=== PATIENT | female | born 1990 | race Caucasian/White ===

== ENCOUNTER → 2016-08-14 | Outpatient (CLI) | payer MEDICAID ==
[~2016-08-14] MED LIST: FERR325T PO; IBUP-232 PO; MACR100C2 PO; MAKE250I IM; OXYC1TAB63 PO; PERI8.6T PO; PREN1CAP30 PO
== END ==
LOC: HPND 13:12
PROVIDERS: ATTEND Obstetrics & Gynecology Obstetrics
DX: O99.212 Obesity complicating pregnancy, second trimester (principal); O09.212 Supervision of pregnancy with history of pre-term labor, second trimester; O09.292 Supervision of pregnancy with other poor reproductive or obstetric history, second trimester; Z68.41 Body mass index [BMI] 40.0-44.9, adult; Z3A.27 27 weeks gestation of pregnancy
CPT/HCPCS: 76816; 76817

== ENCOUNTER 2016-08-30 20:34 | Emergency (ER) | payer MEDICAID ==
[~2016-08-30 20:34] MED LIST changes: -FERR325T PO; -IBUP-232 PO; -MACR100C2 PO; -OXYC1TAB63 PO; -PERI8.6T PO
[2016-08-30 21:31] LABS: BACTERIA, URINE OCC /hpf; BLOOD, URINE NEG (NEG); COMMENT (UR) CULT NOT INDICATED; CULTURE IF INDICATED CULT NOT INDICATED; GLUCOSE,URINE NEG (NEG); KETONE, URINE NEG (NEG); MUCUS URINE FEW /lpf (OCC); NITRITE,URINE NEG (NEG); PH, URINE 6.5 (5.0-8.5); SQUAMOUS EPITHELIAL CELL URINE 2 /hpf (0-5); URINE COLOR YELLOW (YELLW/STRAW)
--- NOTE | 2016-08-30 22:57 | PD ---
HPI Chief Complaint Abdominal pain Date Seen: Aug 30, 2016 Travel History International Travel<30 Days: No Contact w/Intl Traveler<30Days: No Known Affected Area: No History of Present Illness HPI This patient is 25-year-old female 29 weeks gestation with history of complains of abdominal pains for several days, and no bleeding or leakage of fluid, baby is active heart rate tracing is reactive and no regular contractions Para: 3 : 4 Last Menstrual Period: Aug 30, 2016 History Obstetric History Obstetric History Her first was 26 week twins and the one baby did not survive that had a 32 week delivery and a term delivery Past Surgical History Narrative Surgical 3 C-sections Social History Alcohol Use: No Tobacco Use: No Substance Abuse: No Allergies-Medications (Allergen,Severity, Reaction): Coded Allergies: Benadryl (Unverified Allergy, Severe, ANAPHYLAXIS, 08/21/16) Home Meds Active Scripts Hydroxyprogesterone Caproate Inj ([place] Inj)250 Mg/Ml Cet108 Mg IM ONCE #4 VIAL Ref 4 Prov:Alise Hugo CNM [employer]ONING ENGINEER 08/14/16 Reported Medications Without A W/Fe Fum-Fe (Provida Dha 16-16-1.25-110 mg)1 Cap Cap Po #60 06/19/16 Review of Systems General / Constitutional: No: Fever, Weight Gain, Chills, Other Eyes: No: Diploplia, Blurred Vision, Visual changes, Pain, Photophobia HENT: No: Headaches, Vertigo, Lightheadedness Cardiovascular: No: Irregular Rhythm, Chest Pain or Discomfort, Palpitations, Tachycardia, Syncope, Varicosities, Edema, Cyanosis Respiratory: No: Cough, Short of Breath, Other Gastrointestinal: No: Nausea, Vomiting, Diarrhea Genitourinary: No: Decreased Urinary Output, Oliguria Musculoskeletal: No: Limited ROM, Weakness, Cramping, Edema, Pain Skin: No Rash, No Itching, No Dryness, No Lumps, No Change in Pigmentation, No Change in Nails, No Alopecia, No Lesions Neurologic: No: Weakness, Dizziness, Syncope, Focal Abnormalities, Coordination Problem, Headache, Slurred Speech, Seizures Psychiatric: No: Depression, Suicidal Ideations, Homicidal Ideation Endocrine: No: Heat Intolerance, Cold Intolerance, Polydipsia, Polyuria, Other Physical Exam Narrative GENERAL: Well-nourished, well-developed patient. SKIN: Warm and dry. HEAD: Normocephalic and atraumatic. EYES: No scleral icterus. No injection or drainage. ENT: No nasal drainage noted. Mucous membranes pink. Airway patent. NECK: Supple, trachea midline. No JVD. CARDIOVASCULAR: Regular rate and rhythm without murmurs, gallops, or rubs. RESPIRATORY: Breath sounds equal bilaterally. No accessory muscle use. BREASTS: Bilateral exam showed no masses , no retractions, no nipple discharge. ABDOMEN/GI: Abdomen soft, non-tender, bowel sounds present, no rebound, no guarding Gravid to [29-] weeks size Fundal Height: [29 cm-] GENITOURINARY: External Genitalia: intact and normal in appearance BUS glands: [-] Cervix: [-] Dilatation: [-] Closed Effacement: [-] Thick Station: [-3] Presentation: [-] Membranes: [intact ] Uterine Contractions: [no reg-] FHT's: Category: [1-] Baseline: [-144] Reactive: [-yes] Variability: [mod-] Decels: [none-] EXTREMITIES: No cyanosis or edema. BACK: Nontender without obvious deformity. No CVA tenderness. NEUROLOGICAL: Awake and alert. Motor and sensory grossly within normal limits. Five out of 5 muscle strength in all muscle groups. Normal speech. Data Data Orders Vital Signs (Adult) .ON ADMISSION (08/30/16 21:17) ^ Labor Status (08/30/16 21:17) Urinalysis - C+S If Indicated (08/30/16 21:17) Fibronectin (08/30/16 21:17) Labs Laboratory Tests Test 08/30/16 08/30/16 21:00 21:15 Urine Color YELLOW Urine Turbidity CLEAR Urine pH 6.5 Urine Specific [place] 1.019 Urine Protein TRACE Urine Glucose (UA) NEG Urine Ketones NEG Urine Occult Blood NEG Urine Nitrite NEG Urine Bilirubin NEG Urine Urobilinogen LESS THAN 2.0 Urine Leukocyte Esterase NEG Urine WBC 1 Urine Squamous Epithelial 2 Cells Urine Amorphous Sediment RARE Urine Bacteria OCC Urine Mucus FEW Microscopic Urinalysis Comment CULT NOT INDICATED Fibronectin NEGATIVE MDM Interpretation(s) This patient is 29 week intrauterine followed to [facility] who has abdominal pains. She is a history of the past she's been on [place] progesterone injections but has not had steroids. He complaining of abdominal pains but has no regular contractions membranes are intact with no vaginal bleeding. heart tones within normal limits reactive strip and no regular contractions noted, urinalysis is negative , fibronectin negative. Plan Plan to discharge home to bedrest Tylenol use liberally for pain increase her fluids by mouth and bedrest with heating pad or hot bath and we have work note for 48 hours. Diagnosis Diagnosis: Primary Impression: Abdominal pain during in third trimester Additional Impressions: Previous section History of delivery Disposition: 01 DISCHARGE HOME Condition: Stable Patient Instructions: General Instructions, Labor (ED), Abdominal Pain in (ED) Additional Instructions: RETURN FOR CONTRACTIONS, LOSS OF FLUID (WATER BREAKING), VAGINAL BLEEDING, OR DECREASED MOVEMENT DRINK 8-10 LARGE GLASSES OF WATER EVERY DAY KEEP SCHEDULED APPOINTMENT WITH YOUR PROVIDER Departure Forms: Work Release Jakob Doran II, MD Aug 30, 2016 22:56
[2016-09-25] MEDS ORDERED: MACR100C2 PO (15:44)
== END 2016-08-30 23:14 | disposition home or self-care (01) ==
LOC: HOBED 20:34
DX: O26.893 Other specified pregnancy related conditions, third trimester (principal); R10.9 Unspecified abdominal pain; Z3A.36 36 weeks gestation of pregnancy
CPT/HCPCS: 81001; 82731; 99284

== ENCOUNTER → 2016-09-12 | Outpatient (CLI) | payer MEDICAID ==
[~2016-09-12] MED LIST changes: +FERR325T PO; +IBUP-232 PO; +MACR100C2 PO; +OXYC1TAB63 PO; +PERI8.6T PO
== END ==
LOC: HPND 15:01
PROVIDERS: ATTEND Obstetrics & Gynecology
DX: O99.212 Obesity complicating pregnancy, second trimester (principal); O09.212 Supervision of pregnancy with history of pre-term labor, second trimester; E66.01 Morbid (severe) obesity due to excess calories; O09.292 Supervision of pregnancy with other poor reproductive or obstetric history, second trimester; Z68.41 Body mass index [BMI] 40.0-44.9, adult; Z3A.32 32 weeks gestation of pregnancy
CPT/HCPCS: 76816

== ENCOUNTER 2016-10-13 08:29 | Inpatient (IN) | payer MEDICAID ==
[2016-10-13] VITALS (9 sets, daily range): BP systolic 95–123; BP diastolic 45–65; PULSE 71–83; RESP 16–18; TEMP 97.8–98.5; O2SAT 99
[~2016-10-13] VITALS: Ht 154.9 cm; Wt 104.8 kg
[~2016-10-13 08:29] MED LIST changes: -FERR325T PO; -IBUP-232 PO; -MACR100C2 PO; -MAKE250I IM; -OXYC1TAB63 PO; -PERI8.6T PO
[2016-10-13] MEDS ORDERED: LACTATED RINGER'S 1000 ML INJ 1,000 ML IV ONE (09:07)
--- NOTE | 2016-10-13 09:59 | PD ---
HPI Date Seen: Oct 13, 2016 Time Seen: 09:00 (Juan Carlos Chowdary MD R2) Date Seen: Oct 13, 2016 Time Seen: 09:00 (Darin Alex MD) Travel History International Travel<30 Days: No Contact w/Intl Traveler<30Days: No Known Affected Area: No (Juan Carlos Chowdary MD R2) International Travel<30 Days: No Contact w/Intl Traveler<30Days: No Known Affected Area: No (Darin Alex MD) History of Present Illness HPI Pt is a 25-year-old at 35/6 weeks gestation with KEVIN of 11/11/16 based on second trimester ultrasound presenting due to leakage of fluid. Pt reports that she noticed leakage of fluid earlier this morning around 6am, fluid has a green color. She has been experiencing lower abdominal contractions intermittently. She is unsure of the frequency. She endorses movement, denies vaginal bleeding. care is with Missy Eric. She had a c- section consult on 10/11/16. Pt has had 3 previous c-sections. Pt desires a tubal ligation. Consent is signed and on her chart. Pt was taking Mekena due to history of labor. (Juan Carlos Chowdary MD R2) History Past Medical History Narrative Medical Denies history of Asthma Medical History: Denies Significant Hx (Juan Carlos Chowdary MD R2) Medical History: Denies Significant Hx (Darin Alex MD) Obstetric History Obstetric History x3 2006: Emergency at 26 weeks, twin gestation. Second female after one month 2009: repeat at 32 weeks 2011: repeat at 39 weeks (Juan Carlos Chowdary MD R2) Past Surgical History Narrative Surgical Cholecystectomy in 2011 (Juan Carlos Chowdary MD R2) Family History Family History: Negative (Juan Carlos Chowdary MD R2) Family History: Negative (Darin Alex MD) Social History Alcohol Use: No Tobacco Use: No Substance Abuse: No (Juan Carlos Chowdary MD R2) Alcohol Use: No Tobacco Use: No Substance Abuse: No (Darin Alex MD) Allergies-Medications (Allergen,Severity, Reaction): Coded Allergies: Benadryl (Unverified Allergy, Severe, ANAPHYLAXIS, 09/25/16) Home Meds Reported Medications Without A W/Fe Fum-Fe (Provida Dha 16-16-1.25-110 mg)1 Cap Cap Po #60 06/19/16 Discontinued Scripts Nitrofurantoin Monohydrate Macrocrystals (Macrobid)100 Mg Stf940 Mg PO BID #10 CAP Ref 0 Prov:Faustino Limon MD 09/25/16 Review of Systems General / Constitutional: No: Fever, Chills Eyes: No: Blurred Vision HENT: No: Headaches Respiratory: No: Short of Breath Gastrointestinal: Abdominal Pain Genitourinary: No: Vaginal Bleeding Musculoskeletal: No: Edema (Juan Carlos Chowdary MD R2) Except as stated in HPI: all other systems reviewed are Neg (Darin Alex MD) Physical Exam Narrative GENERAL: Well-nourished, well-developed patient. SKIN: Warm and dry. HEAD: Normocephalic and atraumatic. EYES: No scleral icterus. No injection or drainage. ENT: No nasal drainage noted. Mucous membranes pink. Airway patent. NECK: Supple, trachea midline. No JVD. CARDIOVASCULAR: Regular rate and rhythm without murmurs, gallops, or rubs. RESPIRATORY: Breath sounds equal bilaterally. No accessory muscle use. BREASTS: Bilateral exam showed no masses , no retractions, no nipple discharge. ABDOMEN/GI: Abdomen soft, non-tender, bowel sounds present, no rebound, no guarding Gravid to 35 weeks size GENITOURINARY: External Genitalia: intact and normal in appearance Cervix: Posterior Dilatation: 0cm Effacement: 80% Station: -3 Presentation: Vertex Membranes: ruptured Uterine Contractions: Q4 minutes FHT's: Category: 1 Baseline: 150 Reactive: + Variability: Moderate Decels: Absent EXTREMITIES: No cyanosis or edema. BACK: Nontender without obvious deformity. No CVA tenderness. NEUROLOGICAL: Awake and alert. Motor and sensory grossly within normal limits. Five out of 5 muscle strength in all muscle groups. Normal speech. (Juan Carlos Chowdary MD R2) Narrative Adult white female in no distress Head and neck exam reveals no thyromegaly or adenopathy Lungs clear heart regular rate and rhythm without murmurs Abdomen is gravid, soft, nontender Pelvic exam reveals clear fluid leaking from the perineum, positive amnio sure, Extremities nontender. Trace edema (Darin Alex MD) Data Data Vital Signs Reviewed: Yes Orders Admit To Inpatient (10/13/16 ) Code Status (10/13/16 09:07) Vital Signs (Adult) .ON ADMISSION (10/13/16 09:07) Activity Oob Ad Melva (10/13/16 09:07) ^ Heart (10/13/16 09:07) Urinary Catheter Management LUPE.Q8H (10/13/16 09:07) ^ Preps (10/13/16 09:07) ^ Ultrasound For Locatio (10/13/16 09:07) Diet Npo (10/13/16 Breakfast) Lactated Ringer's 1000 Ml Inj (Lr 1000 M (10/13/16 09:07) Lactated Ringer's 1000 Ml Inj (Lr 1000 M (10/13/16 09:37) Citric Acid-Sodium Citrate Liq (Bicitra (10/13/16 10:45) Type And Screen (10/13/16 09:07) Complete Blood Count With Diff (10/13/16 09:07) Urinalysis - C+S If Indicated (10/13/16 09:07) Cefazolin Inj (Ancef Inj) (10/13/16 10:15) Inpatient Certification (10/13/16 ) Ob (2e) Additional Admit Info (10/13/16 09:27) (Juan Carlos Chowdary MD R2) MDM Medical Record Reviewed: Yes Interpretation(s) Pt is a 25-year-old with KEVIN of 11/11/16 based on second trimester ultrasound presenting due to leakage of fluid, amnisure positive. 1) IUP Category 1 tracing, reassuring Contractions q4 minutes Amnisure positive Pt to be admitted for repeat 2) Status post c section x3 Pt had consult on 10/13/[address] Alex (Juan Carlos Chowdary MD R2) Medical Record Reviewed: Yes Narrative Course / MDM 35+ week intrauterine with ruptured membranes, prior section desiring repeat and tubal ligation Plan: Patient be admitted for repeat section and tubal ligation ( Darin Alex MD) Diagnosis Diagnosis: Primary Impression: labor in third trimester Juan Carlos Chowdary MD R2 Oct 13, 2016 09:59 Darin Alex MD Oct 14, 2016 10:28 Darin Alex MD) Diagnosis Diagnosis: Primary Impression: labor in third trimester Juan Carlos Chowdary MD R2 Oct 13, 2016 09:59 Darin Alex MD Oct 14, 2016 10:28
--- NOTE | 2016-10-13 10:26 | HHI.HP ---
History & Physical H&P This patient is a 25-year-old 4 para 1 203 EDC is November 11, 2016 who presents for a consult for repeat section due to PROM at 35-36 wks care with [facility]. Patient also desires a tubal ligation and she has her tubal papers with her it was explained that she should bring them with her when she arrives Course is significant for previous 3 treated for urinary tract infection Laboratory data her blood type is A+ BV on Pap smear treated VDRL is nonreactive Hepatitis negative One-hour Glucola of 80 HIV negative Rubella immune Patient was on Mekena due to history of labor Past medical history she is allergic to Benadryl, UTI BV Surgery includes 3 Social history is negative Family history is negative No previous hospitalization OB history November 14, 2005 emergency section at 26 weeks for twin gestation Female 1 lb. 11 oz. Second infant female 1 lb. 13 oz. Second baby after 1 month August 23, 2009 at 32 weeks' repeat section female 6 lbs. 3 oz. Third February 01, 2012 at 39 weeks repeat female 6 lbs. 7 oz. Ultrasound data on May 28, 2016 at 16 weeks and 1 day patient had an ultrasound placing her EDC at November 11 she will be 39 completed weeks on November 04 after evaluation of the schedule patient is scheduled at 10:30 AM on October Was explained to the patient if she breaks her water goes into labor she is to come straight to labor and delivery for a repeat section that will be done by the on-call hospitalist, Assessment; 25-year-old who will be 39 weeks on November 04 scheduled for a repeat November 06, 2016 now with PROM at 35-36 wks + amnisure Previous 3 Plan; repeat Procedure indications and complications have been fully discussed with the patient she understands and desires to proceed she has a T on her abdomen midline incision as well as a Pfannenstiel we'll discuss route when she arrives with the on-call physician She also desires a tubal ligation she has her sign documents procedure indications and complications have been fully discussed with the patient failure rates have been discussed, risk of ectopic has been discussed, alternate forms of control have been discussed, regret factor discussed, she was to proceed with tubal she does not desire any more children her family status is complete Ruth Booker MD Oct 11, 2016 13:46 Jakob Doran II, MD Oct 13, 2016 10:20 Jakob Doran II, MD Oct 13, 2016 10:26
--- NOTE | 2016-10-13 10:33 | HHI.HP ---
History & Physical H&P Date Seen: Oct 13, 2016 Time Seen: 09:00 Travel History International Travel<30 Days: No Contact w/Intl Traveler<30Days: No Known Affected Area: No History of Present Illness HPI Pt is a 25-year-old at 35/6 weeks gestation with KEVIN of 11/11/16 based on second trimester ultrasound presenting due to leakage of fluid. Pt reports that she noticed leakage of fluid earlier this morning around 6am, fluid has a green color. She has been experiencing lower abdominal contractions intermittently. She is unsure of the frequency. She endorses movement, denies vaginal bleeding. care is with Missy Eric. She had a c- section consult on 10/11/16. Pt has had 3 previous c-sections. Pt desires a tubal ligation. Consent is signed and on her chart. Pt was taking Mekena due to history of labor. History (Limited) History Past Medical History Narrative Medical Denies history of Asthma Medical History: Denies Significant Hx Obstetric History Obstetric History x3 2006: Emergency at 26 weeks, twin gestation. Second infant female after one month 2009: repeat at 32 weeks 2011: repeat at 39 weeks Past Surgical History Narrative Surgical Cholecystectomy in 2011 Family History Family History: Negative Social History Alcohol Use: No Tobacco Use: No Substance Abuse: No Allergies-Medications Allergies-Medications (Allergen,Severity, Reaction): Coded Allergies: Benadryl (Unverified Allergy, Severe, ANAPHYLAXIS, 09/25/16) Home Meds Reported Medications Without A W/Fe Fum-Fe (Provida Dha 16-16-1.25-110 mg)1 Cap Cap Po #60 06/19/16 Discontinued Scripts Nitrofurantoin Monohydrate Macrocrystals (Macrobid)100 Mg Qii156 Mg PO BID #10 CAP Ref 0 Prov:Faustino Limon MD 09/25/16 ROS Review of Systems General / Constitutional: No: Fever, Chills Eyes: No: Blurred Vision HENT: No: Headaches Respiratory: No: Short of Breath Gastrointestinal: Abdominal Pain Genitourinary: No: Vaginal Bleeding Musculoskeletal: No: Edema Physical Exam Physical Exam Narrative GENERAL: Well-nourished, well-developed patient. SKIN: Warm and dry. HEAD: Normocephalic and atraumatic. EYES: No scleral icterus. No injection or drainage. ENT: No nasal drainage noted. Mucous membranes pink. Airway patent. NECK: Supple, trachea midline. No JVD. CARDIOVASCULAR: Regular rate and rhythm without murmurs, gallops, or rubs. RESPIRATORY: Breath sounds equal bilaterally. No accessory muscle use. BREASTS: Bilateral exam showed no masses , no retractions, no nipple discharge. ABDOMEN/GI: Abdomen soft, non-tender, bowel sounds present, no rebound, no guarding Gravid to 35 weeks size GENITOURINARY: External Genitalia: intact and normal in appearance Cervix: Posterior Dilatation: 0cm Effacement: 80% Station: -3 Presentation: Vertex Membranes: ruptured Uterine Contractions: Q4 minutes FHT's: Category: 1 Baseline: 150 Reactive: + Variability: Moderate Decels: Absent EXTREMITIES: No cyanosis or edema. BACK: Nontender without obvious deformity. No CVA tenderness. NEUROLOGICAL: Awake and alert. Motor and sensory grossly within normal limits. Five out of 5 muscle strength in all muscle groups. Normal speech. Data Data Data Vital Signs Reviewed: Yes Orders Admit To Inpatient (10/13/16 ) Code Status (10/13/16 09:07) Vital Signs (Adult) .ON ADMISSION (10/13/16 09:07) Activity Oob Ad Melva (10/13/16 09:07) ^ Heart (10/13/16 09:07) Urinary Catheter Management LUPE.Q8H (10/13/16 09:07) ^ Preps (10/13/16 09:07) ^ Ultrasound For Locatio (10/13/16 09:07) Diet Npo (10/13/16 Breakfast) Lactated Ringer's 1000 Ml Inj (Lr 1000 M (10/13/16 09:07) Lactated Ringer's 1000 Ml Inj (Lr 1000 M (10/13/16 09:37) Citric Acid-Sodium Citrate Liq (Bicitra (10/13/16 10:45) Type And Screen (10/13/16 09:07) Complete Blood Count With Diff (10/13/16 09:07) Urinalysis - C+S If Indicated (10/13/16 09:07) Cefazolin Inj (Ancef Inj) (10/13/16 10:15) Inpatient Certification (10/13/16 ) Ob (2e) Additional Admit Info (10/13/16 09:27) MDM MDM Medical Record Reviewed: Yes Interpretation(s) Pt is a 25-year-old with KEVIN of 11/11/16 based on second trimester ultrasound presenting due to leakage of fluid, amnisure positive. 1) IUP Category 1 tracing, reassuring Contractions q4 minutes Amnisure positive Pt to be admitted for repeat 2) Status post c section x3 Pt had consult on 10/13/[address] Alex Diagnosis Diagnosis: Primary Impression: labor in third trimester Oct 13, 2016 09:59 (Juan Carlos Chowdary MD R2) H&P Patient seen and evaluated with resident under direct supervision, agree with assessment and plan. (Darin Alex MD) Juan Carlos Chowdary MD R2 Oct 13, 2016 10:33 Darin Alex MD Oct 14, 2016 11:12
[2016-10-13] MEDS ORDERED: CITRIC ACID-SODIUM CITRATE LIQ 30 ML UDC PO SCH (10:45)
[2016-10-13 10:47] LABS: AUTOMATED NEUTROPHIL # 5.1 TH/MM3 (1.8-7.7); BASOPHIL % 0.4 % (0.0-2.0); EOSINOPHIL % 0.4 % (0.0-4.0); HEMATOCRIT 35.5 % (35.0-46.0); HEMO FLAGS DIFF FINAL; LYMPH % 20.8 % (9.0-44.0); LYMPHOCYTE # 1.5 TH/MM3 (1.0-4.8); MEAN CELL VOLUME 80.2 FL (80.0-100.0); MEAN CORPUSCULAR HEMOGLOBIN 26.3 PG (27.0-34.0); MEAN CORPUSCULAR HGB CONC 32.8 % (32.0-36.0); MONO % 6.3 % (0.0-8.0); NEUT % 72.1 % (16.0-70.0); PLATELET COUNT 270 TH/MM3 (150-450); RED BLOOD COUNT 4.42 MIL/MM3 (4.00-5.30); RED CELL DISTRIBUTION WIDTH 13.8 % (11.6-17.2); WHITE BLOOD COUNT 7.1 TH/MM3 (4.0-11.0)
[2016-10-13 10:51] LABS: BACTERIA, URINE RARE /hpf; BLOOD, URINE NEG (NEG); COMMENT (UR) CULT NOT INDICATED; CULTURE IF INDICATED CULT NOT INDICATED; GLUCOSE,URINE NEG (NEG); KETONE, URINE NEG (NEG); MUCUS URINE FEW /lpf (OCC); NITRITE,URINE NEG (NEG); SQUAMOUS EPITHELIAL CELL URINE 3 /hpf (0-5); URINE COLOR YELLOW (YELLW/STRAW)
[2016-10-13] MEDS: LACTATED RINGER'S 1000 ML INJ 1,000 ML IV SCH ×3 (11:06→14:15)
[2016-10-13] MEDS ORDERED: ACETAMINOPHEN 1000 MG/100 ML VIAL IV ONE (11:32)
[2016-10-13] MEDS ORDERED: OXYTOCIN 10 UNIT/ML AMP ONE (11:32)
[2016-10-13] MEDS ORDERED: ceFAZolin INJ 1,000 MG VIAL ONE (13:20)
[2016-10-13 13:44] LABS: AMPHETAMINE, URINE NEG (NEG); BARBITURATES, URINE NEG (NEG); COCAINE, URINE NEG (NEG)
[2016-10-13] MEDS ORDERED: ONDANSETRON HCL 4 MG/2 ML VIAL ONE (13:48)
[2016-10-13] MEDS ORDERED: DEXAMETHASONE SOD PHOS 4 MG/ML VIAL ONE (13:48)
[2016-10-13 14:21] LABS: BLOOD GAS BASE EXCESS 0.3 mmol/L (-2-2); BLOOD GAS O2 HGB SATURATION 12 % (90-100); CORD BLOOD GAS HCO3 26 mmol/L (21-29); CORD BLOOD GAS PCO2 56 mmHG (34-78); CORD BLOOD GAS PH 7.29 (7.14-7.42); CORD BLOOD GAS PO2 11 mmHG (3.0-40.0); DRAW SITE CORD BLOOD; STAT YES
[2016-10-13] MEDS ORDERED: ZOLPIDEM TARTRATE 5 MG TAB PO PRN (14:45)
[2016-10-13] MEDS ORDERED: ACETAMINOPHEN 325 MG TAB PO PRN (14:45)
[2016-10-13] MEDS ORDERED: ONDANSETRON HCL 4 MG/2 ML VIAL IV PUSH PRN (14:45)
[2016-10-13] MEDS ORDERED: SODIUM CHLORIDE 0.9% FLUSH 5 ML FLUSH IV PRN (14:45)
[2016-10-13] MEDS ORDERED: OXYTOCIN 30 UNITS-500ML PREMIX 500 ML IV ONE (14:45)
[2016-10-13] MEDS ORDERED: MORPHINE SULFATE PF 5 MG/10 ML VIAL ONE (14:53)
[2016-10-13] MEDS ORDERED: OXYTOCIN 30 UNITS-500ML PREMIX 500 ML ONE (15:30)
[2016-10-13] MEDS ORDERED: EPIDURAL-NALOXONE HCL 0.4 MG/ML AMP IV PRN (18:00)
[2016-10-13] MEDS ORDERED: EPIDURAL-DO NOT ADMINISTER ANTICOAGULANTS XX PRN (18:00)
[2016-10-13] MEDS ORDERED: EPIDURAL-NO SYSTEMIC NARCOTICS XX PRN (18:00)
[2016-10-13] MEDS ORDERED: LACTATED RINGER'S 1000 ML INJ 1,000 ML IV SCH (19:45)
[2016-10-13] MEDS: SODIUM CHLORIDE 0.9% FLUSH 5 ML FLUSH IV SCH (21:00)
[2016-10-14 00:02] VITALS: BP 111/61; PULSE 81; RESP 18; TEMP 97.9
[2016-10-14] MEDS ORDERED: OXYTOCIN 30 UNITS-500ML PREMIX 500 ML IV PRN (00:45)
[2016-10-14] MEDS: IBUPROFEN 600 MG TAB PO PRN ×2 (04:51→13:47)
[2016-10-14] MEDS: oxyCODONE/ACETAMINOPHEN 5 MG/325 MG TAB PO PRN ×2 (04:51→13:47)
[2016-10-14 06:26] LABS: BASOPHIL % 0.2 % (0.0-2.0); HEMATOCRIT 23.3 % (35.0-46.0); HEMO FLAGS DIFF FINAL; LYMPHOCYTE # 1.5 TH/MM3 (1.0-4.8); MEAN CELL VOLUME 80.8 FL (80.0-100.0); MEAN CORPUSCULAR HEMOGLOBIN 26.8 PG (27.0-34.0); MEAN CORPUSCULAR HGB CONC 33.1 % (32.0-36.0); MONO % 9.4 % (0.0-8.0); NEUT % 72.4 % (16.0-70.0); PLATELET COUNT 206 TH/MM3 (150-450); RED BLOOD COUNT 2.88 MIL/MM3 (4.00-5.30); RED CELL DISTRIBUTION WIDTH 13.7 % (11.6-17.2); WHITE BLOOD COUNT 8.3 TH/MM3 (4.0-11.0)
--- NOTE | 2016-10-14 07:14 | HHI.OB ---
Subjective Post Operative Day: 1 Remarks 25 year old female s/p repeat C/S at 35/6 wks gestation, POD 1. AFVSS. Patient reports she is feeling well. Bleeding is decreasing and pain is well- controlled. She is breast feeding and bonding well with baby. Ambulating without difficulties. She is tolerating a diet without nausea or vomiting. She has not had a bowel movement. She has not passed gas. Denies chest pain, dysuria , shortness of breath, or calf pain. Objective Vitals/I&O Vital Signs Date Time Temp Pulse Resp B/P Pulse Ox O2 Delivery O2 Flow Rate FiO2 10/14/16 05:51 18 10/14/16 05:51 18 10/14/16 00:02 97.9 81 18 111/61 10/13/16 20:05 98.2 83 18 109/59 10/13/16 17:00 98.5 75 16 121/62 10/13/16 16:01 97.9 10/13/16 16:00 73 16 123/65 99 10/13/16 15:55 77 16 122/59 99 10/13/16 15:32 79 16 95/62 99 10/13/16 15:17 71 102/45 10/13/16 15:17 16 99 10/13/16 15:10 83 16 115/60 99 10/13/16 14:54 97.8 80 16 99 10/13/16 14:54 109/65 Result Diagram: 10/14/16 0603 Objective Remarks GENERAL: Well-nourished, well-developed patient. CARDIOVASCULAR: Regular rate and rhythm without murmurs, gallops, or rubs. RESPIRATORY: CTAB, no crackles or wheezes. ABDOMEN/GI: Abdomen soft, non-tender, bowel sounds present. Incision: Not examined (has not had chance to shower yet). Will examine prior to D/C. Fundus: Firm, non-tender at umbilicus. GENITOURINARY: Light to moderate bleeding. EXTREMITIES: No cyanosis or edema, non-tender, without signs of DVT. Medications and IVs Current Medications Medications (Trade) Dose Ordered Sig/Anabelle Route Start Time Stop Time Status Last Admin Lactated Ringer's 1,000 ml @ 150 mls/hr Q6H40M IV 10/13/16 09:37 10/13/16 14:15 (Lr 1000 ml Inj) 1,000 ml @ 100 mls/hr Q10H IV 10/13/16 19:45 10/14/16 15:44 10/13/16 22:44 (NS Flush) 2 ml BID IV 10/13/16 21:00 (NS Flush) 2 ml UNSCH PRN IV 10/13/16 14:45 (Tylenol) 650 mg Q6H PRN PO 10/13/16 14:45 (Motrin) 600 mg Q6H PRN PO 10/13/16 14:45 10/14/16 04:51 (Percocet 5-325 Mg) 1 tab Q4H PRN PO 10/13/16 14:45 10/14/16 04:51 (Percocet 5-325 Mg) 2 tab Q4H PRN PO 10/13/16 14:45 (Ambien) 5 mg HS PRN PO 10/13/16 14:45 (M-M-R Ii Inj) 0.5 ml ONCE ONCE SQ 10/14/16 16:00 10/14/16 16:01 (Boostrix Inj) 0.5 ml ONCE ONCE IM 10/14/16 16:00 10/14/16 16:01 (Zofran Inj) 4 mg Q6H PRN IV PUSH 10/13/16 14:45 10/13/16 18:40 Miscellaneous Information NO SYSTEMIC NARCOTICS TO BE GIVEN FO... UNSCH PRN XX 10/13/16 18:00 10/14/16 17:59 (Narcan Inj) 0.4 mg UNSCH PRN IV 10/13/16 18:00 10/14/16 17:59 Miscellaneous Information ALL NURSING DEPARTMENTS UNSCH PRN XX 10/13/16 18:00 10/14/16 17:59 (Ferrous Sulfate) 325 mg BID PO 10/14/16 09:00 Assessment/Plan Problem List: (1) delivery delivered (2) Previous section Assessment and Plan 25 yo female s/p repeat C/S POD 1. - AFVSS - Continue routine care - Motrin and Percocet PRN pain - Post-op Hgb 7.7 --> Tx with Fe SO4 325 mg PO BID, repeat H/H tomorrow - Encourage OOB - Pelvic rest x 6 wks - Will follow up with Missy Eric in 1 week for incision check and 6 weeks for routine f/u - Contraception: TBD - Anticipate D/C 10/16 [facility] OB Hospitalist Gio Ramírez MD R1 Oct 14, 2016 07:14
[2016-10-14 07:23] VITALS: BP 126/78; PULSE 108; RESP 16; TEMP 98.8
[2016-10-14] MEDS: FERROUS SULFATE 325 MG (65 MG ELEMENTAL IRON) TAB PO SCH (10:15)
[2016-10-14] MEDS ORDERED: DIPHTH/TETANUS/ACEL PERTUSSIS (BOOSTER) 0.5 ML VIAL/PFS IM ONE (16:00)
[2016-10-14] MEDS ORDERED: MEASLES, MUMPS, RUBELLA VACCINE 0.5 ML VIAL SQ ONE (16:00)
[2016-10-14 18:58] VITALS: BP 103/63
[2016-10-14 18:59] VITALS: PULSE 112; RESP 18; TEMP 98.9
[2016-10-15] VITALS (16 sets, daily range): BP systolic 103–138; BP diastolic 59–83; PULSE 86–105; RESP 15–20; TEMP 97.6–98.8
[2016-10-15] MEDS: IBUPROFEN 600 MG TAB PO PRN ×3 (00:25→22:22)
[2016-10-15] MEDS: oxyCODONE/ACETAMINOPHEN 5 MG/325 MG TAB PO PRN ×2 (00:25→15:02)
[2016-10-15] MEDS: FERROUS SULFATE 325 MG (65 MG ELEMENTAL IRON) TAB PO SCH ×3 (00:26→22:22)
[2016-10-15 06:29] LABS: REVIEW FLAG FINAL
[2016-10-15 06:31] LABS: HEMATOCRIT 20.5 % (35.0-46.0)
[2016-10-15] MEDS ORDERED: FERR325T PO (07:08)
[2016-10-15] MEDS ORDERED: OXYC1TAB63 PO (07:08)
[2016-10-15] MEDS ORDERED: IBUP-232 PO (07:08)
[2016-10-15] MEDS ORDERED: PERI8.6T PO (07:08)
--- NOTE | 2016-10-15 07:10 | HHI.DCPOC ---
Discharge Care Plan Diagnosis: (1) delivery delivered (2) care following delivery (3) Anemia Report Symptoms to Your Doctor -Temperate above 100.5 degrees -Redness, of incision or excessive or foul smelling drainage -Unusual pain or calf pain -Increased vaginal bleeding -Painful or difficulty urinating -Feelings of extreme sadness or anxiety after 2 weeks Goals to Promote Your Health * To prevent worsening of your condition and complications * To maintain your health at the optimal level Follow up with OB in 1 week and 6weeks post delivery Pelvic rest for 6 weeks avoid lifting anything heavier then baby tell cleared by OB Directions to Meet Your Goals Take your medications as prescribed Follow your dietary instruction Follow activity as directed Ensure plenty of rest for recovery Drink fluids for hydration Keep your appointments as scheduled Take your immunizations and boosters as scheduled If your symptoms worsen call your PCP, if no PCP go to Urgent Care Center or Emergency Room Smoking is Dangerous to Your Health. Avoid second hand smoke Call the 24-hour crisis hotline for domestic abuse at Iraj Jarvis MD R2 Oct 15, 2016 07:10
--- NOTE | 2016-10-15 07:12 | HHI.OB ---
Subjective Post Operative Day: 2 Remarks Patient seen and examined this morning. AF overnight, BP within normal limits. Tachycardic up to 112 bpm overnight. Postoperative day #2. Pain is well controlled. Incision is clean, intact, and not draining. Decreased lochia. Denies dysuria. No breast tenderness. She is feeding the baby via breast and formula. Appetite good. No nausea or vomiting. She states she has not had any flatus yet. Last bowel movement was prior to . Ambulating well without issues. Denies lightheadedness, dizziness, fatigue. States her menstrual blood loss is slightly less than the amount of her normal period. Denies f/c, calf pain, shortness of breath, or cough. (Taco Miller MD R1) Remarks Patient seen and evaluated with resident under direct supervision, agree with assessment and plan. (Darin Alex MD) Objective Vitals/I&O Vital Signs Date Time Temp Pulse Resp B/P Pulse Ox O2 Delivery O2 Flow Rate FiO2 10/15/16 06:41 120/75 10/15/16 06:41 105 15 10/14/16 18:59 112 10/14/16 18:59 98.9 18 10/14/16 18:58 103/63 10/14/16 07:23 98.8 16 10/14/16 07:23 108 126/78 (Taco Miller MD R1) Result Diagram: 10/15/16 0535 Objective Remarks GENERAL: Well-nourished, well-developed patient. CARDIOVASCULAR: Regular rate and rhythm without murmurs, gallops, or rubs. RESPIRATORY: CTAB, no crackles or wheezes. ABDOMEN/GI: Abdomen soft, non-tender, bowel sounds present. Incision: Clean, dry, and intact. Steri-strips in place. Fundus: Firm, non-tender at umbilicus. GENITOURINARY: Light to moderate bleeding. EXTREMITIES: No cyanosis or edema, non-tender, without signs of DVT. Medications and IVs Current Medications Medications (Trade) Dose Ordered Sig/Anabelle Route Start Time Stop Time Status Last Admin (Lr 1000 ml Inj) 1,000 ml @ 150 mls/hr Q6H40M IV 10/13/16 09:37 10/13/16 14:15 (NS Flush) 2 ml BID IV 10/13/16 21:00 (NS Flush) 2 ml UNSCH PRN IV 10/13/16 14:45 (Tylenol) 650 mg Q6H PRN PO 10/13/16 14:45 (Motrin) 600 mg Q6H PRN PO 10/13/16 14:45 10/15/16 00:25 (Percocet 5-325 Mg) 1 tab Q4H PRN PO 10/13/16 14:45 10/15/16 00:25 (Percocet 5-325 Mg) 2 tab Q4H PRN PO 10/13/16 14:45 10/14/16 13:47 (Ambien) 5 mg HS PRN PO 10/13/16 14:45 (Zofran Inj) 4 mg Q6H PRN IV PUSH 10/13/16 14:45 10/13/16 18:40 (Ferrous Sulfate) 325 mg BID PO 10/14/16 09:00 10/15/16 00:26 (Taco Miller MD R1) Assessment/Plan Problem List: (1) care following delivery (2) Anemia Assessment and Plan 25 yo female s/p repeat C/S POD#2. Postoperative care & anemia - AF, continue to monitor vital signs - Motrin and Percocet PRN pain - Hgb preOp 11.6 --> Post-op Hgb 7.7 --> 6.8 today - Will transfuse with 2 units PRBCs and obtain H/H post-transfusion - Repeat H/H tomorrow - Continue Fe SO4 325 mg PO BID - OOB as tolerated - Pelvic rest x 6 wks - Will follow up with Missy Eric in 1 week for incision check and 6 weeks for routine f/u - Anticipate discharge tomorrow 10/07 gibran Jarvis (Taco Miller MD R1) Taco Miller MD R1 Oct 15, 2016 07:12 Darin Alex MD Nov 09, 2016 17:57
[2016-10-15] MEDS ORDERED: SODIUM CHLOR 0.9% 250 ML INJ 250 ML IV ONE (08:15)
[2016-10-15] MEDS ORDERED: ACETAMINOPHEN 325 MG TAB PO PRN (08:15)
[2016-10-15] MEDS ORDERED: FUROSEMIDE 20 MG/2 ML VIAL IV ONE ×2 (08:15→21:00)
[2016-10-15] MEDS ORDERED: DOCUSATE SODIUM 50 MG/SENNA 8.6 MG TAB PO SCH (08:30)
[2016-10-15] MEDS: DOCUSATE SODIUM 50 MG/SENNA 8.6 MG TAB PO SCH ×2 (10:46→22:21)
--- NOTE | 2016-10-15 10:49 | MP ---
cc: EBONI WAKEFIELD MD DATE OF SURGERY: 10/13/2016 PREOPERATIVE DIAGNOSIS Previous section x2 for repeat section and tubal ligation. POSTOPERATIVE DIAGNOSIS 1. Previous section x2 for repeat section and tubal ligation. 2. Large degree of pelvic adhesions. PROCEDURE PERFORMED 1. Repeat low transverse section. 2. Bilateral tubal ligation. 3. Lysis of adhesions. SURGEON Espinoza ANESTHESIA Spinal. PRE-OP NOTE The patient is a 25-year-old female, G4, P3, at 36 weeks tomorrow, who has premature rupture of membranes at 35-36 weeks with meconium-stained fluid. The plan is to proceed with her scheduled #3 with tubal ligation. PROCEDURE The patient was taken to the operating room and placed in supine position on the operating table. With adequate spinal anesthesia administered she was prepped and draped for abdominal surgery. The previous Pfannenstiel incision was excised out and the incision carried to the fascia sharply. The fascia was incised laterally and then reflected off the rectus muscle with Bovie cautery. This was done superiorly and inferiorly. The peritoneal cavity was entered sharply at that time and noted a large degree of adhesions to the omentum, to the lower uterine segment and the corpus. The uterus was adhesed densely with about a 4 cm thick adhesive band anteriorly directed up to the anterior abdominal wall. With a bladder blade at the lower edge of the incision, we reflected the bladder off the lower uterine segment and placed it under the bladder blade. A transverse hysterotomy was made and extended bluntly bilaterally and moderate meconium-stained fluid was noted at that time. The baby was cornelio breech and was delivered as a cornelio breech without difficulty. The baby as a male , weight 3160 grams, Apgars 2, 7 and 8. Cord pH done was 7.29. Delivery was at 1:48 p.m. Cord blood was obtained. The placenta was manually extracted and sent to pathology. The uterus was left in situ and a ring forceps used to grasp along the edges of the hysterotomy and then the hysterotomy closed in a running layer of 0 chromic followed by an imbricating suture of the same. Hemostasis was achieved. We were able to tie one tube on the right in the normal fashion by manipulating it up into the incision. It was grasped in the midsegment and elevated. A hemostat was passed through the mesosalpinx. Two sutures were pulled through the mesosalpinx and the tube was tied fore and aft and the intervening segment removed and sent to pathology. The other tube we could not get to without lysing the adhesions. I was able to get my hand up and around the adhesions and get my whole finger behind them and then was able to use Bovie cautery to cut through that thick band described earlier. Once that was done the uterus was easily exteriorized. The left tube and ovary were then identified and the tube elevated. A hemostat passed through the mesosalpinx and two sutures pulled through and the tube tied fore and aft, and the intervening segment sent to pathology. The anterior surface of the uterus was bleeding from the adhesions that were lysed and approximately four [id number] sutures were needed on that anterior surface to get the bleeding to stop. Bovie cautery was also used. Meghan coagulative powder was placed all over that anterior surface. The uterus was elevated and blood suctioned from the cul-de-sac and gutters, and the uterus replaced into the peritoneal cavity. A sheet of Interceed was placed across the anterior surface of the uterus as well. The rectus muscle was closed inferiorly with several stick ties. The fascia was closed in a running layer of 0 Vicryl. Hemostasis was achieved and the subcutaneous tissue re-approximated with a running 0 plain gut suture. The skin was closed with 3-0 Monocryl in a subcuticular stitch. A pressure dressing was applied along with Steri-Strips. Estimated blood loss was 750 cc. There were no complications. Sponge and needle counts were correct x2. The patient was taken to Recovery in stable condition. MD IVAN Mitchell/BRIA /3:03 PM /10:25 AM
[2016-10-16] MEDS: LACTATED RINGER'S 1000 ML INJ 1,000 ML IV SCH (04:17)
[2016-10-16 06:03] LABS: AUTOMATED NEUTROPHIL # 5.9 TH/MM3 (1.8-7.7); BASOPHIL % 0.3 % (0.0-2.0); EOSINOPHIL # 0.1 TH/MM3 (0-0.4); EOSINOPHIL % 0.8 % (0.0-4.0); HEMATOCRIT 25.4 % (35.0-46.0); LYMPH % 25.1 % (9.0-44.0); LYMPHOCYTE # 2.2 TH/MM3 (1.0-4.8); MEAN CELL VOLUME 81.9 FL (80.0-100.0); MEAN CORPUSCULAR HEMOGLOBIN 28.1 PG (27.0-34.0); MEAN CORPUSCULAR HGB CONC 34.3 % (32.0-36.0); MONO % 6.7 % (0.0-8.0); NEUT % 67.1 % (16.0-70.0); PLATELET COUNT 212 TH/MM3 (150-450); RED CELL DISTRIBUTION WIDTH 14.2 % (11.6-17.2); WHITE BLOOD COUNT 8.8 TH/MM3 (4.0-11.0)
[2016-10-16 06:07] LABS: HEMO FLAGS AUTO DIFF
[2016-10-16 07:12] LABS: BANDS 7 % (0-6); BASOPHILS 1 % (0-2); MYELOCYTES 3 % (0-0); NEUTROPHIL # MANUAL DIFF 6.6 TH/MM3 (1.8-7.7); POLYS (SEG NEUTROPHILS) 65 % (16-70); WBC DIFF SAMPLE 100
[2016-10-16 07:13] LABS: PLATELET ESTIMATE SMEAR NORMAL (NORMAL); PLATELET MORPHOLOGY NORMAL (NORMAL); SCAN/DIFF FINAL DIFF MANUAL
--- NOTE | 2016-10-16 07:20 | HHI.OB ---
Subjective Post Operative Day: 3 Remarks Patient seen and examined this morning. AF overnight, BP within normal limits. Pulse ranging 86-102 over past 24 hours. Postoperative day #3. Pain is well controlled. Incision is clean, intact, and not draining. Decreased lochia. Denies dysuria. No breast tenderness. She is feeding the baby via breast and formula. Her appetite is good, denies any nausea or vomiting. She states she had a BM yesterday near midnight and endorses flatus. Ambulating well without issues. Denies lightheadedness, dizziness, or fatigue. States her menstrual blood loss is decreased from yesterday and less than the amount of her normal period. Denies f/c, calf pain, shortness of breath, or cough. Objective Vitals/I&O Vital Signs Date Time Temp Pulse Resp B/P Pulse Ox O2 Delivery O2 Flow Rate FiO2 10/15/16 22:00 97.6 10/15/16 22:00 102 18 103/83 10/15/16 18:20 86 121/69 10/15/16 18:20 97.9 18 10/15/16 18:20 97.9 86 18 121/69 10/15/16 16:40 98.1 10/15/16 16:40 98.1 95 18 118/66 10/15/16 16:40 95 18 118/66 10/15/16 16:25 93 127/68 10/15/16 16:25 98.3 18 10/15/16 16:25 98.3 93 18 127/68 10/15/16 16:10 98.5 101 18 119/62 10/15/16 16:10 98.5 101 18 119/62 10/15/16 15:55 115/73 10/15/16 15:55 98.8 100 20 115/73 10/15/16 15:55 98.8 100 20 10/15/16 15:40 98.8 97 20 116/70 10/15/16 15:40 97 116/70 10/15/16 15:40 98.8 20 10/15/16 15:35 98.4 18 10/15/16 15:35 101 133/69 10/15/16 15:35 98.4 101 18 133/69 10/15/16 13:30 115/69 10/15/16 13:30 98.4 94 18 3/20/17 13:30 98.4 94 18 115/69 10/15/16 13:00 98.6 93 18 10/15/16 13:00 122/67 10/15/16 13:00 98.6 93 18 122/67 10/15/16 12:45 98.6 97 18 116/70 10/15/16 12:45 98.6 97 18 116/70 10/15/16 12:30 98.6 90 20 107/68 10/15/16 12:30 98.6 90 20 10/15/16 12:30 107/68 10/15/16 12:15 98.4 101 18 118/69 10/15/16 12:15 98.4 101 18 118/69 10/15/16 11:53 98.2 101 18 138/76 10/15/16 08:11 97.9 18 10/15/16 08:11 98 126/59 Result Diagram: 10/16/16 0420 Objective Remarks GENERAL: Well-nourished, well-developed patient. CARDIOVASCULAR: Regular rate and rhythm without murmurs, gallops, or rubs. RESPIRATORY: CTAB, no crackles or wheezes. ABDOMEN/GI: Abdomen soft, non-tender, bowel sounds present. Incision: Clean, dry, and intact. Steri-strips in place. Fundus: Firm, non-tender at umbilicus. GENITOURINARY: Light to moderate bleeding. EXTREMITIES: No cyanosis or edema, non-tender, without signs of DVT. Medications and IVs Current Medications Medications (Trade) Dose Ordered Sig/Anabelle Route Start Time Stop Time Status Last Admin (Lr 1000 ml Inj) 1,000 ml @ 150 mls/hr Q6H40M IV 10/13/16 09:37 10/13/16 14:15 (NS Flush) 2 ml BID IV 10/13/16 21:00 (NS Flush) 2 ml UNSCH PRN IV 10/13/16 14:45 (Tylenol) 650 mg Q6H PRN PO 10/13/16 14:45 10/15/16 10:47 (Motrin) 600 mg Q6H PRN PO 10/13/16 14:45 10/15/16 22:22 (Percocet 5-325 Mg) 1 tab Q4H PRN PO 10/13/16 14:45 10/15/16 00:25 (Percocet 5-325 Mg) 2 tab Q4H PRN PO 10/13/16 14:45 10/15/16 15:02 (Ambien) 5 mg HS PRN PO 10/13/16 14:45 (Zofran Inj) 4 mg Q6H PRN IV PUSH 10/13/16 14:45 10/13/16 18:40 (Ferrous Sulfate) 325 mg BID PO 10/14/16 09:00 10/15/16 22:22 (Catrachita-Colace) 1 tab BID PO 10/15/16 09:00 10/15/16 22:21 Assessment/Plan Problem List: (1) care following delivery (2) Anemia Assessment and Plan 25 yo female s/p repeat C/S and BTL POD#3. Postoperative care & anemia - AFVSS - Motrin and Percocet PRN pain - Hgb preOp 11.6 --> Post-op Hgb 7.7 --> 6.8 --> 8.7 today s/p 2 units PRBCs transfused - Continue Fe SO4 325 mg PO BID - OOB as tolerated - Pelvic rest x 6 wks - Will follow up with Missy Eric in 1 week for incision check and 6 weeks for routine f/u - Stable for discharge today wdw Taco Mims MD R1 Oct 16, 2016 07:20
[2016-10-16 07:34] VITALS: BP 102/61; PULSE 81; RESP 18; TEMP 98.6
[2016-10-16] MEDS: DOCUSATE SODIUM 50 MG/SENNA 8.6 MG TAB PO SCH (08:14)
[2016-10-16] MEDS: FERROUS SULFATE 325 MG (65 MG ELEMENTAL IRON) TAB PO SCH (08:14)
[2016-10-16] MEDS: IBUPROFEN 600 MG TAB PO PRN (08:14)
[2016-10-16] MEDS: SODIUM CHLORIDE 0.9% FLUSH 5 ML FLUSH IV SCH (08:17)
[2016-10-16] MEDS: oxyCODONE/ACETAMINOPHEN 5 MG/325 MG TAB PO PRN (08:17)
[2016-10-18 09:40] LABS: BATH SALTS (MDPV) UR NEG (NEG); ECSTASY (MDMA) UR NEG (NEG); HEROIN (6-ACETYLMORPHINE) UR NEG (NEG); K2 SPICE UR NEG (NEG); OBMETHADONE UR NEG (NEG); OXYCODONE (PERCODAN) NEG (NEG); PHENCYCLIDINE URINE NEG (NEG)
== END 2016-10-16 11:00 | disposition home or self-care (01) | DRG 765 ==
LOC: HOBED 08:29 → H2EB 09:28 → H1EA 16:33
PROVIDERS: ADMIT Obstetrics & Gynecology; ATTEND Obstetrics & Gynecology
PROC: 10D00Z1 Extraction of Products of Conception, Low, Open Approach (ICD-10-PCS; principal; 2016-10-13)
PROC: 0UB70ZZ Excision of Bilateral Fallopian Tubes, Open Approach (ICD-10-PCS; 2016-10-13)
PROC: 3E0P05Z Introduction of Adhesion Barrier into Female Reproductive, Open Approach (ICD-10-PCS; 2016-10-13)
PROC: 30233N1 Transfusion of Nonautologous Red Blood Cells into Peripheral Vein, Percutaneous Approach (ICD-10-PCS; 2016-10-15)
DX: O34.211 Maternal care for low transverse scar from previous cesarean delivery (principal); O60.14X0 Preterm labor third trimester with preterm delivery third trimester, not applicable or unspecified; N73.6 Female pelvic peritoneal adhesions (postinfective); O90.81 Anemia of the puerperium; Z3A.35 35 weeks gestation of pregnancy; Z30.2 Encounter for sterilization; O77.0 Labor and delivery complicated by meconium in amniotic fluid; O32.1XX0 Maternal care for breech presentation, not applicable or unspecified; R00.0 Tachycardia, unspecified; Z37.0 Single live birth
CPT/HCPCS: 36430; 80307; 81001; 82805; 84112; 85007; 85014; 85018; 85025; 85027; 86850; 86900; 86901; 86920; 87081; 87150; 88302; 88307; 99285; C1765; G0481; J0131; J0690; J1100; J1940; J2274; J2405; J2590; J7120; P9016